=== PATIENT | female | born 1995 | race African-American/Black ===

== ENCOUNTER 2023-02-03 14:25 | Emergency (ER) | payer OTHER ==
--- OUTSIDE RECORDS SUMMARY | 2023-02-03 14:29 | XMS REPORT | Continuity of Care Document ---
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 Interpretation Comments basophil count, absolute (test 0.0 x10E3/uL 0.0-0.2 code = 62051-7) [facility] HealthEosinophil Absolute [id number] 10:31:00 Test Item Value Reference Range Interpretation Comments Eosinophil Absolute Count (test 0.1 X10E3/UL 0.0-0.4 code = 03610-9) [facility] Healthmonocyte count, blood, [id number] 10:31:00 Test Item Value Reference Range Interpretation Comments monocyte count, blood, automated 0.4 X10E3/UL 0.1-0.9 (test code = 742-7) [facility]mphocyte count, blood, gngbvhxbt9354-96-53 10:31:00 Test Item Value Reference Range Interpretation Comments lymphocyte count, blood, 2.2 X10E3/UL 0.7-3.1 automated (test code = 731-0) [facility] WayneAbsolute [id number] 10:31:00 Test Item Value Reference Range Interpretation Comments Absolute Neutrophils (test code 4.5 X10E3/UL 1.4-7.0 = 76351-1) [facility]ophils as percent of blood ltmphgcwir0698-20-26 10:31:00 Test Item Value Reference Range Interpretation Comments basophils as percent of blood 0 % leukocytes (test code = 707-0) [facility] Healtheosinophils as percent of blood ccahrdravo3079-54-71 10:31:00 Test Item Value Reference Range Interpretation Comments eosinophils as percent of blood 1 % leukocytes (test code = 713-8) [facility] Healthmonocytes as percent of blood hdctcdtaem3427-32-53 10:31:00 Test Item Value Reference Range Interpretation Comments monocytes as percent of blood 6 % leukocytes (test code = 5905-5) [facility]mphocytes as percent of blood nnvvzlpiht1554-56-57 10:31:00 Test Item Value Reference Range Interpretation Comments lymphocytes as percent of blood 30 % leukocytes (test code = 736-9) [facility] Wayneneutrophils as percent of blood ywmhctksvz9523-33-00 10:31:00 Test Item Value Reference Range Interpretation Comments neutrophils as percent of blood 63 % leukocytes (test code = 770-8) [facility] Wayneplatelet fvzxo1301-28-64 10:31:00 Test Item Value Reference Range Interpretation Comments platelet count (test code = 320 X10E3/UL 150-450 777-3) [facility] blood cell distribution [id number] 10:31:00 Test Item Value Reference Range Interpretation Comments red blood cell distribution width 14.0 % 11.7-15.4 (test code = 788-0) [facility] corpuscular hemoglobin concentration, [id number] 10:31:00 Test Item Value Reference Range Interpretation Comments mean corpuscular hemoglobin 32.2 G/DL 31.5-35.7 concentration, RBC (test code = 786-4) [facility] corpuscular hemoglobin, [id number] 10:31:00 Test Item Value Reference Range Interpretation Comments mean corpuscular hemoglobin, RBC 26.5 pg 26.6-33.0 L (test code = 785-6) [facility] corpuscular volume, [id number] 10:31:00 Test Item Value Reference Range Interpretation Comments mean corpuscular volume, RBC (test code 82 fL 79-97 = 787-2) [facility]ocrit, [id number] 10:31:00 Test Item Value Reference Range Interpretation Comments hematocrit, blood (test code = 4544-3) 37.0 % 34.0-46.6 [facility] Waynehemoglobin, [id number] 10:31:00 Test Item Value Reference Range Interpretation Comments hemoglobin, blood (test code = 11.9 g/dL 11.1-15.9 718-7) [facility]throcyte (RBC) [id number] 10:31:00 Test Item Value Reference Range Interpretation Comments erythrocyte (RBC) count (test 4.49 X10E6/UL 3.77-5.28 code = 789-8) [facility]uk[facility] count, [id number] 10:31:00 Test Item Value Reference Range Interpretation Comments leukocyte count, blood (test 7.2 X10E3/UL 3.4-10.8 code = 6690-2) [facility]Human Papillomavirus test [id number] 09:51:00 Test Item Value Reference Range Interpretation Comments Human Papillomavirus test result HPVNotTested (test code = 29692-1) [facility] WayneHerpes Simplex Virus [id number] 09:03:11 Test Item Value Reference Range Interpretation Comments Herpes Simplex Virus Genital (test code no = 4258) [facility]nepregnancy test, [id number] 09:03:11 Test Item Value Reference Range Interpretation Comments test, type (test code other clinic = 2106-3) [facility] TRANSVAGINAL W/[id number] 15:11:00 Patient Name: BLADIMIR MARIN Unit No: [id number] EXAMS: CPT CODE: [id number] US TRANSVAGINAL W/PELVIS 77086 Pelvic US performed December 27, 2018 1435 hours. COMPARISON: None. CLINICAL HISTORY: Cramping and vaginal bleeding, negative test. DISCUSSION: Real-time buchanan scale sonography performed of the pelvis via the transabdominal and transvaginal approach. The uterus measures 84 x 46 x 63 mmand contains no focal myometrial abnormalities. The endometrium is homogenous and measures 6 mm in thickness. The ovaries are sonographically normal in appearance with the right measuring 33 x 25 x 21 mm and the left measuring 61 x 38 x 52 mm. Simple appearing 35 x 32 x 30 mm cyst is present in the left ovary. Small hemorrhagic cyst is present in the right ovary measuring 13 x 14 x 13 mm. Subcentimeter follicles are seen bilaterally. Normal flow seen in both ovaries. No significant free fluid in seen in the cul de sac. IMPRESSION: 1. Normal pelvic ultrasound. at 1511 Reported and signed by: Nicolette Blanco MD CC: Mayra Stout MD Technologist: Kayla Joya RDMS Probe: [id number] Trnscrbd D/ (1511) eddy.VELASQUEZG Orig Print D/T: S: 12/27/2018 (1515) [facility] NAME: BLADIMIR MARIN Radiology Department PHYS: GUTAL.Maury - Igor Stoutondra [address] : 1995 AGE: 23 SEX: [place], [place] [address] LOC: AleaERS PHONE #: [phone] EXAM DATE: 12/27/2018 STATUS: REG ER FAX #: [phone] RAD NO: Page 1 Signed Report Patient Name: BLADIMIR MARIN Unit No: [id number] EXAMS: CPT CODE: [id number] US TRANSVAGINAL W/PELVIS 63977 (Continued) [facility] NAME: BLADIMIR MARIN Radiology Department PHYS: ZEKE.Maury - Igor Stoutondra [address] : 1995 AGE: 23 SEX: [place], [place] [address] LOC: AleaERS PHONE #: [phone] EXAM DATE: 12/27/2018 STATUS: REG ER FAX #: [phone] RAD NO: Page 2 Signed Report- US PELVIS [id number] 15:11:00 Patient Name: BLADIMIR MARIN Unit No: [id number] EXAMS: CPT CODE: [id number] US PELVIS COMPLETE 17662 Pelvic US performed December 27, 2018 1435 hours. COMPARISON: None. CLINICAL HISTORY: Cramping and vaginal bleeding, negative test. DISCUSSION: Real-time buchanan scale sonography performed of the pelvis via the transabdominal and transvaginal approach. The uterus measures 84 x 46 x 63 mm and contains no focal myometrial abnormalities. The endometrium is homogenous and measures 6 mm in thickness. The ovaries are sonographically normal in appearance with the right measuring 33 x 25 x 21 mm andthe left measuring 61 x 38 x 52 mm. Simple appearing 35 x 32 x 30 mm cyst is present in the left ovary. Small hemorrhagic cyst is present in the right ovary measuring 13 x 14 x 13 mm. Subcentimeter follicles are seen bilaterally. Normal flow seen in both ovaries. No significant free fluid in seen in the cul de sac. IMPRESSION: 1. Normal pelvic ultrasound. Electronically Signed by Nicolette Blanco MD on12/27/2018 at 1511 Reported and signed by: Nicolette Blanco MD CC: Mayra Stout MD Technologist: Kayla Joya RDMS Probe: Trnscrbd D/ (1511) t.SDR.NMG Orig Print D/T: S: 12/27/2018(1515) [facility] NAME: [facility] Radiology Department PHYS: GUTAL.01 - Mayra Stout [address] : 1995 AGE: 23 SEX: [place], [place] [address] LOC: AleaERS PHONE #: [phone] EXAM DATE: 12/27/2018 STATUS: REG ER FAX #: [phone] RAD NO: Page 1 Signed Report Patient Name: BLADIMIR MARIN Unit No: [id number] EXAMS: CPT CODE: [id number] US PELVIS COMPLETE 97132 (Continued) [facility] NAME: [facility] Radiology Department PHYS: GUTAL. - Mayra Stout [address] : 1995 AGE: 23 SEX: F [place], [place] [address]OEOU NO: [id number] LOC: AleaERS PHONE #: [phone] EXAM DATE: 12/27/2018 STATUS: REG ER FAX #: [phone] RAD NO: Page 2 Signed ReportUA RFLX MICR CULT IF [id number] 15:09:00 Test Item Value Reference Range Interpretation Comments UA COLOR (test code = COLU) YELLOW YELLOW UA APPEARANCE (test code = CLEAR CLEAR APPU) UA GLUCOSE DIPSTICK (test code NEGATIVE NEG = DGLUU) UA BILIRUBIN DIPSTICK (test NEGATIVE NEG code = BILU) UA KETONE DIPSTICK (test code NEGATIVE NEG = KETU) UA SPECIFIC GRAVITY (test code 1.010 1.001-1.035 N = SGU) UA BLOOD DIPSTICK (test code = NEG NEG CHRISTIN) UA PH DIPSTICK (test code = 6.0 5-9 LUCAS) UA PROTEIN DIPSTICK (test code NEGATIVE NEG = PROU) UA UROBILINIOGEN DIPSTICK NEGATIVE mg/dL NEG (test code = URO) UA NITRITE DIPSTICK (test code NEG NEG = LIZZ) UA LEUKOCYTE ESTERASE DIPSTICK TRACE NEG A (test code = LEUU) UA WBC (test code = WBCU) 0-2 #/hpf NONE SEEN UA RBC (test code = RBCU) 0-2 #/hpf NONE SEEN UA EPITHELIAL CELLS (test code RARE #/HPF RARE-FEW = EPIU) UA BACTERIA (test code = BACU) RARE /HPF RARE-FEW UA MUCUS (test code = MUCU) RARE NONE SEEN UR HCG [id number] 15:09:00 Test Item Value Reference Range Interpretation Comments UR HCG QUAL (test NEGATIVE 1. Very di lute urine code = HCGQLU) specimens, as indicated by a lowspecific g ravity, may not contain rep resentative levels ofhCG. 2 . False negative result s may occur when the levels of hCGare below the sensi tivity level of the test. If is still suspec alan, a first morningurine sp ecimen should be colle cted 48 hours later and tested. UA RFLX MICR CULT IF [id number] 15:08:00 Test Item Value Reference Range Interpretation Comments UA COLOR (test code = COLU) YELLOW UA APPEARANCE (test code = APPU) CLEAR UA GLUCOSE DIPSTICK (test code = NEGATIVE DGLUU) UA BILIRUBIN DIPSTICK (test code = NEGATIVE BILU) UA KETONE DIPSTICK (test code = KETU) NEGATIVE UA SPECIFIC GRAVITY (test code = SGU) 1.001-1.035 UA BLOOD DIPSTICK (test code = CHRISTIN) NEGATIVE UA PH DIPSTICK (test code = LUCAS) 5-9 UA PROTEIN DIPSTICK (test code = PROU) NEGATIVE UA UROBILINIOGEN DIPSTICK (test code = EU/dL <=1.0 URO) UA NITRITE DIPSTICK (test code = LIZZ) NEGATIVE UA LEUKOCYTE ESTERASE DIPSTICK (test NEG code = LEUU) UA WBC (test code = WBCU) #/hpf NONE SEEN UA EPITHELIAL CELLS (test code = EPIU) #/HPF RARE-FEW UR HCG [id number] 15:08:00 Test Item Value Reference Range Interpretation Comments UR HCG QUAL (test NEGATIVE 1. Very di lute urine code = HCGQLU) specimens, as indicated by a lowspecific g ravity, may not contain rep resentative levels ofhCG. 2 . False negative result s may occur when the levels of hCGare below the sensi tivity level of the test. If is still suspec alan, a first morningurine sp ecimen should be colle cted 48 hours later and tested.
--- NOTE | 2023-02-03 15:43 | RAD REPORT ---
EXAM DESCRIPTION: CT - Head Brain Wo Cont - 02/03/2023 3:17 pm CLINICAL HISTORY: Headache COMPARISON: none TECHNIQUE: Computed axial tomography of the head was obtained. IV contrast was not requested. All CT scans are performed using dose optimization technique as appropriate and may include automated exposure control or mA/KV adjustment according to patient size. FINDINGS: An intracranial bleed is not seen The ventricles are normal in caliber No significant hypodense areas within the brain visualized No extra-axial fluid collection is noted. Fluid within the sinuses/ mastoids is not seen IMPRESSION: No acute intracranial abnormality is seen If patient's symptoms persist MRI of the brain would be recommended
--- NOTE | 2023-02-03 19:11 | ER ---
Nurse's Notes [facility] Name: Jodi Gardner Age: 27 yrs Sex: Female : 1995 Arrival Date: 02/03/2023 Time: 14:29 Bed External Waiting Private MD: Diagnosis: Elevated blood pressure Presentation: 02/03 15:04 Chief complaint: Patient states: "my blood pressure is high and it started yesterday". aa5 Reports headache and chest pain since yesterday. 15:04 Risk Assessment: Do you want to hurt yourself or someone else? Patient reports no aa5 desire to harm self or others. Onset of symptoms was January 2023. 15:04 Acuity: ASAEL 3 aa5 15:04 Method Of Arrival: Wheelchair aa5 15:04 Coronavirus screen: At this time, the client does not indicate any symptoms associated aa5 with coronavirus-19. Ebola Screen: Patient denies travel to an Ebola-affected area in the 21 days before illness onset. Initial Sepsis Screen: Does the patient meet any 2 criteria? No. Patient's initial sepsis screen is negative. Does the patient have a suspected source of infection? No. Patient's initial sepsis screen is negative. Historical: - Allergies: 15:05 unknown antibiotic; aa5 - PMHx: 15:05 Asthma; aa5 - Immunization history:: Adult Immunizations unknown. - Social history:: Smoking status: Reported history of juuling and/or vaping. Assessment: 16:57 Reassessment: pt not in lobby when called for blood work. iw Vital Signs: 15:04 BP 186 / 97; Pulse 73; Resp 20 S; Temp 97.8(O); Pulse Ox 96% on R/A; Weight 136.08 kg aa5 (R); Height 5 ft. 9 in. (175.26 cm) (R); 15:04 Body Mass Index 44.30 (136.08 kg, 175.26 cm) aa5 ED Course: 14:29 Patient arrived in ED. mr 14:50 Nish Hines PA is PHCP. fred 14:50 Isaac Kendrick DO is Attending Physician. [facility] 15:04 Arm band placed on. aa5 15:05 Triage completed. aa5 15:10 EKG completed in triage. Results shown to MD. kerri5 19:16 Estela Jolly, RN is Primary Nurse. iw Administered Medications: No medications were administered Outcome: 19:16 Patient left the ED. iw Signatures: Nish Hines PA PA jmm ElderPat mr Estela Jolly, RN RN iw Candice Mendosa RN RN aa5 Corrections: (The following items were deleted from the chart) 15:06 15:04 Chief complaint: Patient states: "my blood pressure is high and it started aa5 yesterday". aa5 15:06 15:06 Temp 97.8F Oral; aa5 aa5 15:07 15:04 Temp 97.8F Oral; aa5 aa5
--- NOTE | 2023-02-03 19:11 | EDPHYS ---
Physician Documentation [facility] Name: Jodi Gardner Age: 27 yrs Sex: Female : 1995 Arrival Date: 02/03/2023 Time: 14:29 Bed External Waiting Private MD: ED Physician Isaac Kendrick HPI: 02/03 15:05 This 27 yrs old Black Female presents to ER via Wheelchair with complaints of High [facility] Blood Pressure, Headache, Chest Pain. 15:05 Is a 27-year-old female with history of asthma that presents emerged part with [facility] complaints of headache, elevated blood pressure which she noticed while at home. Also complains of some chest pain and fatigue. Patient does not take medication for blood pressure. Historical: - Allergies: 15:05 unknown antibiotic; aa5 - PMHx: 15:05 Asthma; aa5 - Immunization history:: Adult Immunizations unknown. - Social history:: Smoking status: Reported history of juuling and/or vaping. ROS: 15:05 Constitutional: Positive for fatigue. jmm 15:05 Cardiovascular: Positive for chest pain. 15:05 Neuro: Positive for headache. 15:05 All other systems are negative. Exam: 15:05 Constitutional: This is a well developed, well nourished patient who is awake, alert, jmm and in no acute distress. Head/Face: atraumatic. Eyes: EOMI, no conjunctival erythema appreciated ENT: Moist Mucus Membranes Neck: Trachea midline, Supple Chest/axilla: Normal chest wall appearance and motion. Cardiovascular: Regular rate and rhythm. No edema appreciated Respiratory: Normal respirations, no respiratory distress appreciated Abdomen/GI: Non distended Back: Normal ROM Skin: General appearance color normal MS/ Extremity: Moves all extremities, no obvious deformities appreciated, no edema noted to the lower extremities Neuro: Awake and alert Psych: Behavior is normal, Mood is normal, Patient is cooperative and pleasant Vital Signs: 15:04 BP 186 / 97; Pulse 73; Resp 20 S; Temp 97.8(O); Pulse Ox 96% on R/A; Weight 136.08 kg aa5 (R); Height 5 ft. 9 in. (175.26 cm) (R); 15:04 Body Mass Index 44.30 (136.08 kg, 175.26 cm) aa5 MDM: 15:11 Patient medically screened. [facility] 19:03 Differential diagnosis: hypertensive crisis, Malignant HTN, intracerebral hemorrhage. [facility] Data reviewed: vital signs, nurses notes. ED course: Patient eloped from the ED prior to final disposition.. ED course: RN attempted to contact the patient without success. 02/03 15:05 Order name: CBC with Diff [facility] 02/03 15:05 Order name: BMP [facility] 02/03 15:05 Order name: Troponin High Sensitivity [facility] 02/03 15:05 Order name: Saline Lock [facility] 02/03 15:07 Order name: CT Head Brain wo Cont [facility] 02/03 15:08 Order name: EKG - Nurse/Tech; Complete Time: 15:17 [facility] 02/03 15:44 Order name: CT; Complete Time: 15:47 EDMS EC:14 Rate is 67 beats/min. Rhythm is regular. QRS [place] is Normal. [place] interval is normal. QRS jmm interval is normal. QT interval is normal. No Q waves. T waves are Normal. No ST changes noted. Reviewed by me. Administered Medications: No medications were administered Disposition: 18:31 Co-signature as Attending Physician, Isaac Kendrick DO I was immediately available on-site ms3 in the Emergency Department for consultation in the care of the patient. Disposition Summary: 02/03/23 19:11 Eloped Disposition: after being seen by provider ele Reason: unknown jm Condition: Stable [facility] Diagnosis - Elevated blood pressure [facility] Followup: [facility] - With: Private Physician - When: 2 - 3 days - Reason: Recheck today's complaints, Continuance of care, Re-evaluation by your physician Signatures: Dispatcher [employer] EDNish De Leon PA PA jmm Calderon, Audri, RN RN Isaac Sun DO DO ms3
[2023-02-03 19:33] VITALS: BP 186/97; TEMP 97.8; O2SAT 96
--- NOTE | 2023-02-05 13:07 | EKG ---
Test Date: 2023-02-03 Test Time: 15:12:47 Geriatric Nurse: LORRIE MEASUREMENT RESULTS: Intervals: Rate: 67 DE: 174 QRSD: 92 QT: 430 QTc: 454 [place]: P: 20 DE: 174 QRS: 0 T: 26 INTERPRETIVE STATEMENTS: Normal sinus rhythm Normal ECG No previous ECG available for comparison Electronically Signed On 02-05-23 13:03:37 FORTUNE TELLER by Carl Ndiaye
== END 2023-02-03 19:16 | disposition left against medical advice (07) ==
LOC: ER 14:25
DX: R03.0 Elevated blood-pressure reading, without diagnosis of hypertension (principal); R07.89 Other chest pain; R53.83 Other fatigue
CPT/HCPCS: 70450; 93005; 99281